=== PATIENT | male | born 1935 | race Caucasian/White ===

== ENCOUNTER → 2017-11-17 | Outpatient (CLI) | payer MEDICARE, OTHER ==
[~2017-11-17] MED LIST: ASPI81EC PO; Antivert25 MG PO; CEPH500 PO; CLOT1SO; DONE5 PO; ERGO400 PO; KETOCONAZOLE 2%; Keppra1000 MG PO; LAMO100 PO; LEVSOD200 PO; LEVSOD25 PO; LEVSOD50 PO; LORA.5 PO; LORA1 PO; NAPR500 PO; OXCA150 PO; OXYACE5T PO; PRIM250 PO; QUIN10 PO; ROSU10TA PO; TAMS.4ER PO; TRIA80TC TOP; TRIHYD253A PO; VALA500 PO; Valium5 MG PO; WARF2 PO; ZESTORETIC 20-121 EA; diuretic; prostate med
== END | disposition home or self-care (01) ==
LOC: PLD 13:34 → LAB SHORT 13:34
DX: D22.62 Melanocytic nevi of left upper limb, including shoulder (principal)
CPT/HCPCS: 88305

== ENCOUNTER → 2017-11-30 | Outpatient (CLI) | payer MEDICARE, OTHER | END | disposition home or self-care (01) | LOC: LAB SHORT 14:02 → PLD 14:02 | DX: D22.62 Melanocytic nevi of left upper limb, including shoulder (principal) | CPT/HCPCS: 88305 ==

== ENCOUNTER 2020-01-07 09:54 | Emergency (ER) | payer MEDICARE, OTHER ==
[~2020-01-07] VITALS: Ht 182.9 cm; Wt 90.7 kg
[2020-01-07 10:42] LABS: BASOPHILS ABSOLUTE AUTO 0.05 K/mm3 (0.00-0.23); BASOPHILS PERCENT AUTO 1 % (0-2); EOSINOPHILS ABSOLUTE AUTO 0.17 K/mm3 (0.00-0.68); EOSINOPHILS PERCENT AUTO 2 % (0-6); Hematocrit 53.1 % (37.0-53.0); Hemoglobin 17.5 g/dL (13.5-17.5); IMMATURE GRAN ABSOLUTE AUTO 0.02 K/mm3 (0.00-0.10); IMMATURE GRAN PERCENT AUTO 0 % (0-1); LYMPHOCYTES ABSOLUTE AUTO 2.82 K/mm3 (0.84-5.20); LYMPHOCYTES PERCENT AUTO 30 % (21-46); MONOCYTES ABSOLUTE AUTO 0.71 K/mm3 (0.16-1.47); MONOCYTES PERCENT AUTO 7 % (4-13); Mean Corpuscular HGB 31.9 pg (26.0-34.0); Mean Corpuscular Volume 97 fL (80-100); Mean Platelet Volume 11.4 fL (9.1-12.4); NEUTROPHILS ABSOLUTE AUTO 5.79 K/mm3 (1.96-9.15); NEUTROPHILS PERCENT AUTO 61 % (41-73); Platelet Count 176 K/mm3 (150-400); RDW Coefficient Variation 12.3 % (11.7-14.2); RDW Standard Deviation 44.2 fL (35.1-46.3); Red Blood Cell Count 5.48 M/mm3 (4.30-5.90); White Blood Cell Count 9.56 K/mm3 (4.00-11.30)
[2020-01-07 10:51] LABS: Troponin I 0.024 ng/mL (0.000-0.040)
[2020-01-07 10:53] LABS: Alanine Aminotransfer (ALT/SGP 24 U/L (12-78); Albumin, Blood 3.4 g/dL (3.4-5.0); Albumin/Globulin Ratio 0.8 (0.8-1.8); Alk Phos 85 U/L (50-136); Anion Gap 8 mmol/L (6-16); Aspartate Aminotrans (AST/SGOT 37 U/L (12-37); Bilirubin, Total 1.2 mg/dL (0.1-1.0); Blood Urea Nitrogen 22 mg/dL (8-24); Bun/Creatinine Ratio 25.4 (12.0-20.0); CO2, Blood 23 mmol/L (21-32); Calcium, Blood 8.2 mg/dL (8.5-10.1); Chloride, Blood 110 mmol/L (98-108); Creatinine, Blood 0.87 mg/dL (0.60-1.20); Globulin, Blood 4.1 g/dL (2.2-4.0); Glomerular Filtration Rate >60 (60-); Glucose, Blood 146 mg/dL (70-99); Potassium, Blood 4.5 mmol/L (3.5-5.5); Sodium, Blood 141 mmol/L (136-145); Total Protein, Blood 7.5 g/dL (6.4-8.2)
[2020-01-07 10:57] LABS: International Normalized Ratio 1.05; Prothrombin Time Results 11.2 Sec (9.7-11.5)
[2020-01-07] MEDS ORDERED: ATOR20 PO (12:49)
[2020-01-07] MEDS ORDERED: METO25ER PO (12:54)
== END 2020-01-07 13:07 | disposition home or self-care (01) ==
LOC: ER 09:54
PROVIDERS: Emergency Medicine
DX: R53.1 Weakness (principal); R61 Generalized hyperhidrosis; F03.90 Unspecified dementia, unspecified severity, without behavioral disturbance, psychotic disturbance, mood disturbance, and anxiety; Z79.01 Long term (current) use of anticoagulants; Z79.899 Other long term (current) drug therapy; G40.909 Epilepsy, unspecified, not intractable, without status epilepticus; E03.9 Hypothyroidism, unspecified; I10 Essential (primary) hypertension; Z86.711 Personal history of pulmonary embolism
CPT/HCPCS: 36415; 71045; 80053; 83690; 83880; 84484; 85025; 85610; 93005; 93010; J2405

== ENCOUNTER 2020-02-07 01:09 | Emergency (ER) | payer MEDICARE, OTHER ==
[~2020-02-07] VITALS: Ht 195.6 cm; Wt 99.8 kg
[~2020-02-07 01:09] MED LIST changes: +ATOR20 PO; -Keppra1000 MG PO; +METO25ER PO
[2020-02-07 01:47] LABS: BASOPHILS ABSOLUTE AUTO 0.05 K/mm3 (0.00-0.23); BASOPHILS PERCENT AUTO 1 % (0-2); EOSINOPHILS ABSOLUTE AUTO 0.19 K/mm3 (0.00-0.68); EOSINOPHILS PERCENT AUTO 2 % (0-6); Hematocrit 48.9 % (37.0-53.0); IMMATURE GRAN ABSOLUTE AUTO 0.02 K/mm3 (0.00-0.10); IMMATURE GRAN PERCENT AUTO 0 % (0-1); LYMPHOCYTES ABSOLUTE AUTO 2.16 K/mm3 (0.84-5.20); LYMPHOCYTES PERCENT AUTO 26 % (21-46); MONOCYTES PERCENT AUTO 8 % (4-13); Mean Corpuscular HGB 31.9 pg (26.0-34.0); Mean Corpuscular HGB Conc 32.7 g/dL (31.5-36.5); Mean Corpuscular Volume 98 fL (80-100); Mean Platelet Volume 11.4 fL (9.1-12.4); NEUTROPHILS ABSOLUTE AUTO 5.23 K/mm3 (1.96-9.15); NEUTROPHILS PERCENT AUTO 63 % (41-73); Platelet Count 203 K/mm3 (150-400); RDW Coefficient Variation 12.7 % (11.7-14.2); RDW Standard Deviation 45.6 fL (35.1-46.3); Red Blood Cell Count 5.01 M/mm3 (4.30-5.90); White Blood Cell Count 8.35 K/mm3 (4.00-11.30)
[2020-02-07 02:05] LABS: Albumin/Globulin Ratio 0.8 (0.8-1.8); Bilirubin, Total 0.7 mg/dL (0.1-1.0); Bun/Creatinine Ratio 18.4 (12.0-20.0); Calcium, Blood 8.7 mg/dL (8.5-10.1); Creatinine, Blood 1.79 mg/dL (0.60-1.20); Globulin, Blood 3.8 g/dL (2.2-4.0); Total Protein, Blood 6.8 g/dL (6.4-8.2); Troponin I 0.016 ng/mL (0.000-0.040)
== END 2020-02-07 05:51 | disposition home or self-care (01) ==
LOC: ER 01:09
PROVIDERS: Emergency Medicine
DX: S09.90XA Unspecified injury of head, initial encounter (principal); Z79.82 Long term (current) use of aspirin; Z79.899 Other long term (current) drug therapy; I10 Essential (primary) hypertension; E03.9 Hypothyroidism, unspecified
CPT/HCPCS: 70450; 71046; 72125; 80053; 84484; 85025; 93005; 93010; 99284-25

== ENCOUNTER 2020-03-04 15:08 | Observation (INO) | payer MEDICARE, OTHER ==
[~2020-03-04] VITALS: Ht 190.5 cm; Wt 90.5 kg
[2020-03-04 15:58] LABS: BASOPHILS ABSOLUTE AUTO 0.06 K/mm3 (0.00-0.23); BASOPHILS PERCENT AUTO 1 % (0-2); EOSINOPHILS PERCENT AUTO 1 % (0-6); Hematocrit 52.8 % (37.0-53.0); Hemoglobin 17.1 g/dL (13.5-17.5); IMMATURE GRAN ABSOLUTE AUTO 0.01 K/mm3 (0.00-0.10); IMMATURE GRAN PERCENT AUTO 0 % (0-1); LYMPHOCYTES ABSOLUTE AUTO 1.93 K/mm3 (0.84-5.20); LYMPHOCYTES PERCENT AUTO 21 % (21-46); MONOCYTES PERCENT AUTO 8 % (4-13); Mean Corpuscular HGB 31.7 pg (26.0-34.0); Mean Corpuscular HGB Conc 32.4 g/dL (31.5-36.5); Mean Corpuscular Volume 98 fL (80-100); NEUTROPHILS ABSOLUTE AUTO 6.25 K/mm3 (1.96-9.15); NEUTROPHILS PERCENT AUTO 69 % (41-73); Platelet Count 156 K/mm3 (150-400); RDW Coefficient Variation 12.7 % (11.7-14.2); RDW Standard Deviation 46.3 fL (35.1-46.3); Red Blood Cell Count 5.39 M/mm3 (4.30-5.90); White Blood Cell Count 9.05 K/mm3 (4.00-11.30)
[2020-03-04 16:20] LABS: Alanine Aminotransfer (ALT/SGP 20 U/L (12-78); Albumin, Blood 3.4 g/dL (3.4-5.0); Albumin/Globulin Ratio 0.9 (0.8-1.8); Alk Phos 78 U/L (50-136); Anion Gap 6 mmol/L (6-16); Aspartate Aminotrans (AST/SGOT 24 U/L (12-37); Bilirubin, Total 1.4 mg/dL (0.1-1.0); Blood Urea Nitrogen 27 mg/dL (8-24); Bun/Creatinine Ratio 33.6 (12.0-20.0); CO2, Blood 25 mmol/L (21-32); Calcium, Blood 8.6 mg/dL (8.5-10.1); Chloride, Blood 109 mmol/L (98-108); Globulin, Blood 3.8 g/dL (2.2-4.0); Glomerular Filtration Rate >60 (60-); Glucose, Blood 110 mg/dL (70-99); Potassium, Blood 4.8 mmol/L (3.5-5.5); Sodium, Blood 140 mmol/L (136-145); Total Protein, Blood 7.2 g/dL (6.4-8.2)
[2020-03-04] MEDS ORDERED: ATOR40TA PO (16:55)
[2020-03-04] MEDS ORDERED: SYNTHROID125 MC1 PO (16:55)
[2020-03-04] MEDS ORDERED: METOPROLOL TART25 MG PO (16:55)
[2020-03-04] MEDS ORDERED: DONEPEZIL HCL10 M1 PO (16:56)
[2020-03-04] MEDS ORDERED: KEPPRA1000 MG PO (16:57)
[2020-03-04] MEDS ORDERED: ASPI325EC PO (16:58)
[2020-03-04] MEDS ORDERED: CLOP75 PO (16:58)
[2020-03-04] MEDS ORDERED: Prinivil10 MG PO (16:59)
[2020-03-04 17:27] LABS: Source, Urine Clean Catch
[2020-03-04 17:31] LABS: Blood, Urine 3+ (Neg); Glucose Qualitative, Urine Neg (Neg); Ketones, Urine 4+ (Neg); Leukocyte Esterase, Urine 1+ (Neg); Nitrite, Urine Neg (Neg); Protein, Urine 2+ (Neg); Specific Gravity, Urine 1.025 (1.003-1.022); Urobilinogen, Urine 2+ (Normal)
[2020-03-04 17:34] LABS: Appearance, Urine Clear (Clear); Bilirubin, Urine 1+ (Neg); Color, Urine Amber (P-Yellow)
[2020-03-04 17:36] LABS: Bacteria Many /hpf; Mucus Mod (0-Heavy); Squamous Epithelial Cells Mod /hpf (Few)
--- NOTE | 2020-03-05 05:52 | NUR ---
SHIFT SUMMARY PT NEW ED ADMIT THIS EVENING. VERY CONFUSED. ALERT TO SELF ONLY THIS EVENING. DOES NOT ANSWER QUESTIONS APPROPRIATELY. JUST MUMBLES SOMETHING OFF TOPIC WHEN ATTEMPTING TO ASK QUESTIONS. PT PROVIDED WITH PUDDING AND SANDWICH AND PT ONLY SAT THERE SPREADING THE PUDDING ON THE TOP OF THE SANDWICH. INITIALLY PT DID NOT WANT TO SIT IN BED BUT HAS DONE WELL SINCE ADMISSION. ATIVAN GIVEN IN ED AND PT HAS BEEN SLEEPING MOST OF THE NIGHT SINCE. PREPARED NANCY VEST BUT DID NOT END UP HAVING TO PLACE IT ON PATIENT. PT HAS NOT SET OFF BED ALARM BUT WAS IMPULSIVE AND UNCOOPERATIVE AT TIMES IN ED PER REPORT. BED ALARM ON FOR SAFETY. PT HAS NOT VOIDED THIS SHIFT. OFFERED MULTIPLE TIMES AND PT DENIED THE NEED. PT HAS NOT BEEN INCONTINENT OF URINE EITHER. PT WAS STRAIGHT CATH'D IN ED BEFORE ADMISSION. BLADDER SCAN DONE THIS AM READING 235 MLS. NEW 22 G PLACED TO LFA. PT TOLERATED WELL. HAS NOT ATTEMPTED TO REMOVE. PT WILL REQUIRE PLACEMENT UPON DISCHARGE. VITAL SIGNS STABLE. WILL CONTINUE TO MONITOR.
--- NOTE | 2020-03-05 07:25 | NUR ---
ASSUMED CARE OF PT- BEDSIDE REPORT COMPLETED WITH NIGHT RN ANNABEL. PER REPORT PT WAS RECENTLY ADMITTED. SNF WAS RECOMENDED ON DISCHARGE HOWEVER FAMILY WANTED TO TAKE THE PT HOME. ONCE HOME (PER REPORT) PT WAS NOT WHAT THE FAMILY WAS EXPECTING AND HE HAD ADDITIONAL FALLS. PT ADMITTED R/T THE FALLS AND NEEDS PLACEMENT. PLACING A SS CONSULT AT THIS TIME PER PROTOCOL FOR DISCHARGE PLANNING.
--- NOTE | 2020-03-05 08:00 | NUR ---
DR KINSEY AT THE BEDSIDE PT NOT ROUSING TO VOICES, OR PHYSICAL STIMULI. PT APPEARS TO BE SLEEPING SOUNDLY. PULSE OX PLACED TO CHECK SATS PT WAS SLEEPING SO SOUND AND PT HR WAS LOW [address] WAS PRESENT. RECIEVED VERBAL ORDER FOR STAT EKG, PT HAS +2 PITTING EDEMA IN BLE. AWARE AND REQUESTED RN CALL WITH THE RESULT OF THE EKG ONCE COMPLETED.
--- NOTE | 2020-03-05 08:30 | NUR ---
CALLED DR KINSEY WITH THE RESULT OF THE EKG. NO NEW ORDERS AT THIS TIME. PT STABLE NO S&S OF DISTRESS, RESP E & U. WILL REVIEW EKG.
--- NOTE | 2020-03-05 09:00 | NUR ---
DR SANCHEZ ROUNDED ON THE PT, SPOKE TO HIM ABOUT THE MORNINGS EVENTS. NEW ORDER RECIEVED TO PLACE THE PT ON TELE. PT RUNNING SINUS PARTH AT 46 WHEN TELE WAS PLACED.
--- NOTE | 2020-03-05 13:53 | NUR ---
PT FULLY AWAKE AND CONFUSED, CLIMBING OUT OF BED, SPEAKING IN WORD SALAD, NOT REDIRECTABLE. PT APPEARS TO BE PLEASENTLY CONFUSED AT THIS TIME BUT SEEMS TO BE ESCALATING WILL CALL FOR NANCY DIGGS ORDER STAFF ARE NOW 1:1 TO PREVENT PT FALLS, IF THE STAFF LEAVE THE ROOM THE PT WILL IMMEDIATELY CLIMB OVER THE RAILING, HE DOES NOT KNOW WHERE HE IS GOING (PER PT) PT DENIES THE NEED FOR BATHROOM. NANCY DIGGS WILL KEEP THE PT SAFE.
--- NOTE | 2020-03-05 14:00 | NUR ---
TRANSFER NOTE- PT TRANSFERED TO BACK THIELLS FOR SAFETY AND FALL RISK. PT PLACED IN NANCY VEST (SEE PREVIOUS NOTES FOR DETAILS) SOON THE VEST WAS PLACED THE PT LAID BACK IN THE BED AND LAY QUIETLY UNTIL THE TRANSFER. TELE NOTIFIED OF THE TRANSFER TO ROOM 350
--- NOTE | 2020-03-05 15:37 | NUR ---
SHIFT SUMMARY PT WAS TRANSFERRED FROM THE COATS AND WAS ASSISTED TO HIS NEW BED. HE IS AWAKE AND SMILES BUT IS NOT ORIENTED AND SPEAKS IN WORD SALAD. PER REPORT HE HAS BEEN TRYING TO CLIMB OUT OF BED AND HAS A NANCY ON FOR HIS SAFETY. DR KINSEY HAS SEEN HIM AT THE BEDSIDE SINCE HIS TRANSFER. HE HAS HIS CALL LIGHT IN REACH AND THE BED IS IN THE LOW POSITION WITH THE ALARM ON FOR PT SAFETY.
--- NOTE | 2020-03-06 04:30 | NUR ---
SUMMARY: PT A/O TO SELF ONLY. HE'S PLEASANT W/ATTEMPTS TO BE COOPERATIVE W/CARE BUT HE IS VERY CONFUSED AND HAS DIFFICULTY FOLLING INSTRUCTION. HE'S FORGETFULL, IMPULSIVE, A HIGH FALL RISK AND DOESN'T CALL FOR ASSIST SO NANCY VEST REMAINS IN PLACE W/BED ALARM ON. TURN SCHEDULE MAINTAINED, CAMERA MONITORING IN PLACE AND FREQ ROUNDING ATTENDED TO. HE CAN ANSWER SOME Q'S APPROPRIATELY TO SPECIFY NEEDS BUT AT OTHER TIMES HAS WORD SALAD. SNACKS PROVIDED AND ATTENDS CHANGED PRN FOR INCONTINENCE. HE REMAINS NSR ON TELEMETRY W/IV SL. MEDS RECIEVED CRUSHED IN PUDDING AND PT DENIED PAIN/ALL OTHER COMPLAINTS. NO ACUTE CHANGES, VSS/AFEBRILE. HE'LL LIKELY NEED SNF UPON D/C. WCTM AND REPORT TO DAY RN.
--- NOTE | 2020-03-06 06:10 | NUR ---
PT HAS BEEN NSR W/OCCASIONAL S.PARTH AT 52-60'S BPM SINCE ADMIT W/O ANY ECTOPIES. ALL OTHER VSS AND NO S/S CARDIAC DISTRESS. HE'S REMOVED PATCHES MULTIPLE TIMES T/O NOCTE AND TELEMETRY OFTEN READS ARTIFACT D/T FIGITING AND RESLTESSNESS. TELEMETRY DC'D BY AT THIS TIME.
--- NOTE | 2020-03-06 06:48 | NUR ---
AFTER FURTHER RESEARCH AND EVALUATION OF BRADYCARDIA DOWN TO 40'S RECENT 03/05/20, DISCUSSION WAS HAD W/RADAR SIGNAL PROCESSING ENGINEER (AMBER BRUCE) RE:POSSIBLE CONT'D NEED OF TELEMETRY. FACILITY SERVICE ASSOCIATE INFORMED STAFF THAT RHYTHM WAS COMING IN [place] AGAIN AND HE IS CURRENTLY NSR AT 60'S BPM. UPDATED AND REORDERED TELEMETRY MONITORING. DAY STAFF AWARE AND SAME TELEMETRY BOX REMAINS IN PLACE. DC TELE ORDER IS NOW CANCELLED.
--- NOTE | 2020-03-06 11:26 | NUR ---
Pt. is din bed resting offered prayers and gave encouragement.
--- NOTE | 2020-03-06 19:17 | NUR ---
SHIFT SUMMARY: HYPOTENSIVE TO 97/61 THIS MORNING, BETA JEFF HELD. ALERT TO SELF ONLY, DIFFICULT TO REDIRECT, FLAT AFFECT. SINUS RHYTHM WITH PAC'S ON TELEMETRY. NANCY VEST REMOVED AT 1249 PT WAS QUIET AND COOPERATIVE. AT ~1830, PATIENT GETTING OOB WITHOUT ASSISTANCE (IS MONITORED ON CAMERA) AND TRYING TO WALK WITHOUT FWW, DOES NOT FOLLOW DIRECTIONS WELL. DENIES PAIN. WILL NOT EAT IF LEFT ALONE, NEEDS FEEDING ASSISTANCE. INCONTINENT OF B&B, WEARING ATTENDS. PLAN IS FOR [facility]ACEMENT [facility] WHEN BED AVAILABLE.
--- NOTE | 2020-03-07 01:11 | NUR ---
03/06/201999 Pt is up in chair, he continues to try and get up, freq falls in the past. [place] restraint reordered and applied for safety. Pt is cooperative with angela. Remains up in chair with TV on for distraction. Pt is very confused and has difficulty following directions.
--- NOTE | 2020-03-07 05:00 | NUR ---
Rn summary: Patient has been resting quietly this shift since he was helped to bed. [place] removed at 0400 due to his staying in bed and sleeping. Tele shows ST rate 102. Heart rate at 0400 was 86. No changes during the shift. Bed alarm on, call light near.
--- NOTE | 2020-03-07 13:35 | NUR ---
Met. pt. in bed resting , he looks much better today encouraged pt and offered prayers.
--- NOTE | 2020-03-07 20:27 | NUR ---
SHIFT SUMMARY: A&O TO SELF ONLY, RESPONDS TO QUESTIONS AT TIMES. CAN BE IMPULSIVE AND HAS DIFFICULTY FOLLOWING DIRECTIONS. NO RESTRAINTS REQUIRED THIS SHIFT. WAS UP IN CHAIR FOR MEALS, USED FWW X 3 TO USE BR. NAPPED INTERMITTENTLY. NO SUNDOWNING BEHAVIOR TONIGHT. GAIT IS WEAK AND UNSTEADY. NEEDS TO BE FED AND PROMPTED TO DRINK FLUIDS, INTAKE IS POOR. NO BM X 2 DAYS, MOM GIVEN WITHOUT RESULT, HAS ACTIVE BS.
--- NOTE | 2020-03-08 06:00 | NUR ---
SHIFT SUMMARY: VSS. AFEB. AAO TO SELF. PLEASANTLY CONFUSED. JOVIAL. NO ATTEMPTS TO SELF T/F OUT OF BED. CONT OF URINE X 1 TONIGHT. NO VOID THIS AM, BLADDER SCAN SHOWS 299CC'S. FLUIDS AT BEDSIDE AND ENCOURAGED. BED ALARM ON, BED LOW, FREQUENT CHECKS. NO ACUTE CHANGES. WILL CONT TO MONITOR.
--- NOTE | 2020-03-08 18:10 | NUR ---
SHIFT SUMMARY- PT IS ALERT AND PLESANT, HE IS CONFUSED AND HAS A DIFFICULT TIME FOLLOWING DIRECTIONS. HE SLEPT FOR SEVERAL HOURS AT THE BEGINNING OF THIS SHIFT BUT BECAME MORE RESTLESS DURING THE EVENING. HIS CAME TO VISIT TWICE DURING THIS SHIFT. HE IS EATING AND DRINKING WELL. HE IS INCONTINENT. HE DID NOT HAVE A BM THIS SHIFT.
--- NOTE | 2020-03-09 04:51 | NUR ---
SHIFT SUMMARY: VSS. AFEB. AAO TO SELF. ATTEMPTS TO SELF T/F ONLY WHEN ATTEMPTING TO ACCESS THE BATHROOM TONIGHT. VERY DIFFICULT TO DIRECT WHEN UP AMB W/ STAFF ASSIST. QUIETER TONIGHT, LESS TALKING. STILL SMILES AND JOKES W/STAFF AT TIMES. CONT TO SPEAK WITH A WORD SALAD AT BASELINE. BED LOW, ALARM ON, CAMERA MONITOR IN PLACE, WILL CONT TO MONITOR.
--- NOTE | 2020-03-09 05:16 | NUR ---
PT HAD ONE VERY SMALL INCONTINENT VOID TONIGHT. BLADDER SCAN SHOWED 247CC. INTAKE REMAINS VERY LOW.
--- NOTE | 2020-03-09 17:50 | NUR ---
SHIFT SUMMARY- PT IS ALERT PLESANT AND COOPERATIVE. HE SLEPT FOR MUCH OF THIS SHIFT. HE WAS GIVEN PRN BOWEL CARE, WITH NO RESULTS OF YET. HE IS EATING AND DRINKING WELL. HE GOT UP A FEW TIMES AND AMBULATED IN THE ROOM. HE STATED THAT HE NEEDED TO HAVE A BM AND WAS TAKEN TO THE RESTROOM, ONCE HE WAS THERE HE COULD NOT REMEMBER WHY HE WAS IN THERE. HE URINATED IN THE TOILET BUT DID NOT HAVE A BM. HE IS CONFUSED AND IT IS DIFFICULT TO FOR HIM TO FOLLOW DIRECTIONS.
--- NOTE | 2020-03-10 00:32 | NUR ---
HOSPITALIST ISRAEL MCCLENDON DC'D TELEMETRY. NO IV ACCESS. FUEL STORAGE TECHNICIAN NOTIFIED.
--- NOTE | 2020-03-10 04:09 | NUR ---
SHIFT SUMMARY PATIENT HAD NO ACUTE CHANGES OBSERVED. AXO TO SELF. WORD SALAD BASELINE. ONE ASSIST TO BATHROOM, IMPULSIVE. NOT ABLE TO DIRECT AT TIMES. BED ALARM ACTIVATED. TAKES MEDICATION A FEW AT A TIME. NO IV ACCESS. TELEMETRY DC'D. VSS/AFEBRILE. DENIES PAIN, SOB, AND N/V. ON CAMERA. CALL LIGHT IN REACH. BED IN LOWEST POSITION. WILL CONTINUE TO MONITOR UNTIL DAY SHIFT NURSE ASSUMES CARE.
--- NOTE | 2020-03-10 18:15 | NUR ---
SHIFT SUMMARY PT SLEEPING, RESTING QUIETLY AT START OF SHIFT. PT SLEEPING WELL THRU BREAKFAST, EATING LATE. ADMITTED FOR ALZ DEMENTIA. PT WOKE AND ASSISTED UP TO CHAIR FOR MEALS. COMPLETELY UNDIRECTABLE. DOES NOT FOLLOW COMMANDS OR ASSISTED DIRECTIONS AT ALL. HX FALLS AT HOME. PT OUT OF CHAIR, SETTING OFF ALARM TO GO TO BTHRM; UNMEASURED VOID AND EXTRA LRG BM. PT HAS BEEN CONTINENT OF BOWEL AND BLADDER. NO C/O PAIN. DENIES NEEDS. PT WAITING FOR PLACEMENT IN [facility]. CALL LT IN REACH. BED ALARM ON FOR SAFETY.
--- NOTE | 2020-03-10 20:46 | NUR ---
HOSPITALIST DR ZEPEDA ORDERED NANCY DIGGS FOR PATIENT. NOT REDIRECTABLE AT THIS TIME. FALL RISK. ALERT TO SELF. CALL LIGHT IN REACH.
--- NOTE | 2020-03-11 04:56 | NUR ---
SHIFT SUMMARY PATIENT HAD INCREASED CONFUSION WITH MULTIPLE BED EXITS AND NOT ABLE TO FOLLOW DIRECTIONS. HOSPITALIST DR ZEPEDA ORDERED NANCY VEST FOR PATIENT SAFETY AND FALL RISK. PATIENT TRIED TO TAKE VEST OFF T/O THE SHIFT AND SWINGS LEGS OVER BED RAILS PER CAMERA TECH. VSS/AFEBRILE. DENIES PAIN, SOB, AND N/V. NO IV ACCESS. CALL LIGHT IN REACH. BED IN LOWEST POSITION AND ALARM ACTIVATED. WILL CONTINUE TO MONITOR UNTIL DAY SHIFT NURSE ASSUMES CARE.
--- NOTE | 2020-03-11 18:32 | NUR ---
SHIFT SUMMARY NO ACUTE CHANGES TO PRESENT THIS SHIFT. PT A LITTLE AGITATED THIS AM WITH OTHER PT'S YELLING ACROSS THE COATS; FREQUENTLY ATTEMPTING TO GET OOB. SETTING OFF BED ALARM. PT ASSISTED UP TO CHAIR FOR BREAKFAST. DOES NOT CO-OP OR FOLLOW INSTRUCTIONS AT ALL. PT IS ALERT AND ORIENTED TO SELF ONLY. DOES NOT ACKNOWLEDGE ANY COMMANDS OR QUESTIONS WHEN ASKED. PT ASSISTED OUT TO COATS AFTER BREAKFAST, SITTING IN CHAIR BESIDE STAFF THRU OUT THE DAY. PT'S IN TO VISIT FOR A LITTLE WHILE DURING LUNCH AND THEN LEFT. REPORTED SP FAUCILITY TO COME AND MEET PT TOMORROW FOR POSSIBLE INTAKE. HOPING HE WILL BE ACCEPTED, SHE REPORTED THAT IT HAS BEEN DIFFICULT TO FIND AVAILABLE PLACEMENT FOR HIM. PT DOES NOT APPEAR TO BE IN ANY DISTRESS. SITTING IN CHAIR WITH MAGAZINES AND OBJECTS GIVEN TO DISTRACT HIM AND ENTERTAIN HIM. PT SMILING AND OCCASSIONALLY LAUGHING. WILL REPORT TO ONCOMING RN.
--- NOTE | 2020-03-12 04:13 | NUR ---
SHIFT SUMMARY PATIENT HAD NO ACUTE CHANGES OBSERVED. AXOX TO SELF AND ONE ASSIST TO BATHROOM. NANCY VEST IN PLACE PER ORDERS. IMPULSIVE AND FALL RISK WITH MULTIPLE BED EXIT ATTEMPTS. VSS/AFEBRILE. DENIES PAIN, SOB, AND N/V. NO IV ACCESS. TAKES MEDICATION WHOLE, A FEW AT A TIME. PATIENT OUT IN COATS DURING SHIFT CHANGE AND LATER BACK IN BED. PATIENT NOT REDIRECTABLE AT THIS TIME AND NOT FOLLOWING COMMAND. LESS AGITATION NOTED THIS SHIFT. CALL LIGHT IN REACH. BED IN LOWEST POSITION AND ALARM ACTIVATED. WILL CONTINUE TO MONITOR UNTIL DAY SHIFT NURSE ASSUMES CARE.
--- NOTE | 2020-03-12 15:01 | NUR ---
Met pt in a chair resting, pt.is weak encouraged pt offered prayers and spiritual support.
--- NOTE | 2020-03-12 17:46 | NUR ---
SHIFT SUMMARY PATIENT ALERT TO SELF THIS SHIFT. PATIENT CALM AND COOPERATIVE WITH CARE. PATIENT SITTING UP IN THE CHAIR THIS SHIFT. PATIENT PLEASANTLY CONFUSED AND OFTEN DOESN'T UNDERSTAND QUESTIONS. PATIENT SITTING UP IN THE CHAIR EATING DINNER.
--- NOTE | 2020-03-13 04:17 | NUR ---
SHIFT SUMMARY PT HAS HAD NO ACUTE CHANGES THIS SHIFT, NO C/O ANY KIND, A&O TO SELF ONLY, PLEASANT & COOPERATIVE W/CARE, SLEPT T/O THE NIGHT & AT THIS TIME, CALL LIGHT IN REACH, WILL CONT TO MONITOR UNTIL REPORT GIVEN TO DAY RN.
--- NOTE | 2020-03-13 11:10 | NUR ---
Pt. is sitting in a chair ans is doing much better prayed for him.
--- NOTE | 2020-03-13 17:27 | NUR ---
SHIFT SUMMARY PATIENT PLEASANTLY CONFUSED THIS SHIFT. PATIENT MORE WITHDRAWN THIS SHIFT THAN PREVIOUS SHIFT. PATIENT UP IN CHAIR FOR BREAKFAST THEN BACK IN BED AND TOOK A NAP THIS AFTERNOON. VISITORS IN FROM A FACILITY THIS SHIFT ASSESSING THE PATIENT FOR POTENTIAL PLACEMENT. PATIENT OFTEN ONLY REDIRECTABLE AFTER MULTIPLE ATTEMPTS. PATIENT CURRENTLY SITTING UP IN BED WATCHING TELEVISION.
--- NOTE | 2020-03-14 05:07 | NUR ---
SHIFT SUMMARY PT HAS HAD NO ACUTE CHANGES THIS SHIFT, WALKED W/PLASTICS DESIGN ENGINEER W/FWW 75 FT IN HALLWAY BEFORE BED, SLEPT PERIODICALLY T/O THE NIGHT, SLEEPING AT THIS TIME, BED ALARM ACTIVE, WILL CONT TO MONITOR UNTIL REPORT GIVEN TO DAY RN.
--- NOTE | 2020-03-14 13:52 | NUR ---
Pt. is sitting in a chair resting seems to be confused offered prayers and spiritual support.
--- NOTE | 2020-03-14 17:29 | NUR ---
SHIFT SUMMARY PATIENT REMAINS DISORIENTED THROUGHOUT THIS SHIFT. PATIENT FOLLOWS DIRECTIONS ONLY AFTER REPEATED COACHING. PATIENT APPEARS TO NOT HEAR MANY DIRECTIONS UNTIL THEY ARE REPEATED SEVERAL TIMES, YET DOES NOT APPEAR HUGHES DUE TO ANSWERING SOME QUESTIONS AT A SPEAKING VOICE. PATIENT UP IN THE BEDSIDE CHAIR THIS AM. PATIENT 1 PERSON ASSIST TO THE BATHROOM, YET COACHING TO REACH THE BATHROOM OFTEN TAKES SOME TIME. PATIENT CURRENTLY SITTING UP IN BED WATCHING TELEVISION.
--- NOTE | 2020-03-15 01:33 | NUR ---
PT HAS GOTTEN UP MULTIPLE TIMES. HE IS VERY CONFUSED AND HARD TO RE-DIRECT. PT ALSO HAS UNSTEADY GAIT. NANCY VEST AND WRIST RESTRAINTS APPLIED AT 2150. PT HAS TRIED TO UNTIE HIS VEST. 0135 CURRENTLY ASLEEP.
--- NOTE | 2020-03-15 06:41 | NUR ---
MEDICAL EXAMINER SUMMARY PT A/O X1. PT HAS TRIED TO GET MULTIPLE TIMES AT BEGINNING OF SHIFT. HE WAS SUCCESSFUL AT UNTIEING HIS NANCY, THEREFORE SOFT BILATERAL WRIST RESTRAINTS WERE APPLIED. WHEN HE DOES GET UP, HE IS DIFFICULT TO RE-DIRECT AND HAS UNSTEADY GAIT. NANCY AND WRIST RESTRAINTS WERE DC'D AT 0635 THIS MORNING. PT CURRENTLY ASLEEP NOW. DENIES PAIN, NAUSEA AND DISCOMFORT. HTN THIS MORNING. HOSPIALIST DR. SERNA NOTIFIED AND RE-STARTED ON METOPROLOL PO. PT DOES HAVE HX OF HTN. BED ALARM ON. ON CAMERA MONITOR. CALL LIGHT WITHIN REACH.
--- NOTE | 2020-03-15 17:42 | NUR ---
SHIFT SUMMARY PATIENT REMAINS PLEASANTLY CONFUSED THIS SHIFT. PATIENT MORE ACTIVE THIS SHIFT AND HAS ATTEMPTED TO AMBULATE MULTIPLE TIMES. WHEN ATTEMPTING TO AMBULATE WITH PATIENT FOR SAFETY PATIENT IS UNABLE TO FOLLOW INSTRUCTIONS. PATIENT ABLE TO AMBULATE TO THE BATHROOM WITH MULTIPLE REPEATED INSTRUCTIONS. PATIENT SITTING UP IN THE CHAIR WATCHING TELEVISION.
--- NOTE | 2020-03-15 20:43 | NUR ---
BILATERAL SOFT WRIST RESTRAINT AND NANCY HAS BEEN APPLIED AT THIS TIME. PT HAS TRIED TO GET OUT OF BED MULTIPLE TIMES. HE IS VERY HARD TO REDIRECT. HE IS A FALL RISK WELL. A/O TO SELF. HE DENIES PAIN. I OFFERED PT URINAL AND HE DID NOT VOID. BED IN LOWEST POSITION. LOW LIGHT IN PLACE. WILL CONTINUE TO MONITOR.
--- NOTE | 2020-03-16 06:13 | NUR ---
MOLD FILLER SUMMARY PT A/O X1 TO SELF. CURRENTLY IN NANCY VEST AND BILATERAL WRIST RESTRAINTS DUE TO IMPULSIVENESS, FALL RISK AND NOT FOLLOWING DIRECTIONS EVEN WITH 2 STAFF MEMBERS TRYING TO RE-DIRECT PT BACK TO BED. HE IS CURRENTLY TALKING TO SELF IN HIS ROOM. TUGS AT RESTRAINTS AT TIMES. PT EDUCATED TO NOT TUG AT RESTRAINTS FOR HIS SAFETY. VSS. BED ALARM IN PLACE, BED IN LOWEST POSITION, CALL LIGHT IN PLACE. NO COMPLAINTS OF PAIN OR NAUSEA.
--- NOTE | 2020-03-16 11:27 | NUR ---
SPOKE WITH DR. SANCHEZ ABOUT THE PATIENT NOT PEEING. ALTHOUGH IT READ >448. DR. SANCHEZ SAID TO GO AHEAD AND RECHECK IN FOUR HOURS. IF HIS BLADDER HAS OVER 600 THEN WE CAN STRAIGHT CATH THE PATIENT.
--- NOTE | 2020-03-16 17:51 | NUR ---
SHIFT SUMMARY NO ACUTE CONCERNS AT THIS TIME. PATIENT HAS BEEN LETHARGIC. HE DENIES ANY CONCNERNS AT THIS TIME.
--- NOTE | 2020-03-17 05:32 | NUR ---
SHIFT SUMMARY PT IS AN 84 Y/O MALE, ADMITTED FOR ALZHEIMER'S & DEMENTIA. PT IS A&O X 0, VERY DIFFICULT TO REDIRECT, AND DOES NOT LISTEN TO INSTRUCTIONS. HE IS ON BEDREST, INCONTINENT. PT DENIED ANY COMPLAINTS OF PAIN, NAUSEA OR SOB. PT SLEPT WELL. VITAL SIGNS STABLE. NO ACUTE CHANGES IN PT CONDITION NOTED DURING THE NIGHT. WILL CONTINUE TO MONITOR AND TREAT PER EMAR UNTIL HAND OFF TO DAY SHIFT RN.
--- NOTE | 2020-03-17 18:52 | NUR ---
SHIFT SUMMARY PATIENT IS DISROBING IN HIS ROOM, HE STATES THAT HE NORMALLY SLEEPS IN THE NUDE AND REFUSES THE IDEA OF HAVING SOMEONE TAKE CARE OF HIM. I DID NOTE THAT HE HAS A BRUISE ON HIS ABDOMEN UNDER THE STRAP. HE DENIES THAT IT IS FROM HIS SHIRT. HE IS TRYING TO PULL HIS NANCY OFF CONSTANTLY. WE HAVE CHANGED SIZES OF NANCY VEST, THE BRUISE LOOKS NO WORSE TODAY THAN YESTERDAY.
--- NOTE | 2020-03-17 19:14 | NUR ---
chaeck on pt a few times today resting comfortbly.
--- NOTE | 2020-03-18 06:45 | NUR ---
SHIFT SUMMARY PT IS AN 84 Y/O MALE, ADMITTED FOR DEMENTIA AND ALZHEIMERS. HE IS A&O X SELF ONLY, UNABLE TO BE REDIRECTED OR REORIENTED. PT BEGAN THE SHIFT IN A NANCY VEST, AND SOFT WRIST AND ANKLE RESTRAINTS WERE ADDED WHEN PT WAS ABLE TO PULL HIMSELF OUT OF HIS NANCY, AND THEN WAS THROWING HIS LEGS AND HIPS OFF OF THE BED. PT IS ALSO CONTINUALLY PULLING OFF HIS CLOTHING, ATTENDS, AND ANY BLANKETS OR PILLOWS AROUND THEM. NO COMPLAINTS OF PAIN, NAUSEA OR SOB. VITAL SIGNS STABLE. PT ONLY SLEPT FOR SHORT PERIODS OF TIME DURING THE NIGHT. NO OTHER ACUTE CHANGES IN PT CONDITION NOTED. WILL CONTINUE TO MONITOR AND TREAT PER EMAR UNTIL HAND OFF TO DAY SHIFT RN.
--- NOTE | 2020-03-18 11:26 | NUR ---
PATIENT IS CURRENTLY TALKING TO AN EMPTY ROOM. HE IS IN ANKLE RESTRAINTS, AND A NANCY. HE IS HAVING A FULL CONVERSATION WITH THE WALL AND THE EMPTY ROOM. DENIES ANY CONCERNS WHEN I WALK IN.
--- NOTE | 2020-03-18 15:48 | NUR ---
SHIFT SUMMARY PATIENT IS PLEASANT, ALERT TO SELT. HE IS STILL IN HIS NANCY AT THIS TIME, HE WAS IN FOUR POINTS WHEN I ARRIVED THIS ORNING. I DO BELIEVE THAT HE SUNDOWNS DURING THE EVENING. DENIES ANY OTHER PROBLEMS AT THIS TIME. PATIENT IS FAIRLY DEMENTED.
--- NOTE | 2020-03-19 05:12 | NUR ---
SUMMARY: PT IS PLEASANTLY CONFUSED AND ALERT TO SELF ONLY. HE OCCASIONALLY SEEMS TO ANSWER SOME Q'S APPROPRIATELY BUT OFTEN RESPONDS NONSENSICALLY. HE REMAINS ON CAMERA W/BED ALARM INTACT AND RESTRAINED FOR IMPULSIVITY AND VERY HIGH FALL RISK. HE SLEPT INTERMITTENTLY AND TENDS TO AWAKE FIGITY, DISROBING AND ATTEMPTING TO REMOVE ATTENDS OR THROW LEGS OVER EOB. HE IS BEING TESTED OUT OF 4 POINT RESTRAINTS AND HAS TOLERATED NANCY VEST ONLY AT THIS TIME. PT TOLERATES PILLS W/APPLESAUCE BUT IS OBSERVED OFTEN CHEWING THEM. HE'S DENIED PAIN AND ALL OTHER COMPLAINTS. PT CONT'S W/POOR UO AND IS KNOWN TO NOT VOID FOR A WHOLE SHIFT. MD'S HAVE BEEN PREVIOUSLY AWARE W/O SIGNIFICANT CONCERN BECAUSE HE IS VOIDING. NO ACUTE CHANGES, VSS/AFEBRILE. WCTM/REPORT TO DAY RN.
--- NOTE | 2020-03-19 06:28 | NUR ---
SPOKE WITH . PT STILL HASN'T VOIDED THIS SHIFT AND DENIES NEED/URGE TO VOID AND DENIES DISCOMFORT. HE IS TYPICALLY INCONTINENT W/ POOR INTAKE AND IS KNOWN TO NOT VOID AT TIMES IN SHIFT. PRN BLADDER SCANS RX'D W/INSTRUCTION TO STRAIGH CATH IF >450.
--- NOTE | 2020-03-19 07:58 | NUR ---
CALLED JAVA LEAD. EDWARDO CERDA PT CONFIRMED SEEN ON CAMERA.
--- NOTE | 2020-03-19 15:15 | NUR ---
RESTRAINTS DC'D TODAY AT 1515 PER NURSING JUDGEMENT. PT SLEEPING MOST OF THE MORNING. MORE AWAKE THIS AFTERNOON. BED BATH GIVEN. TRIAL WITH NO RESTRAINTS IN PROGRESS. PT RESTING COMFORTABLY IN BED WITH CALL LIGHT IN REACH.
--- NOTE | 2020-03-19 18:08 | NUR ---
SHIFT SUMMARY PT ONLY ORIENTED TO SELF TODAY. SLEPT MOST OF DAY. PT WEARING NANCY VEST THIS AM D/T CONFUSION AND FALL RISK. TRIALED DC OF RESTRAINTS THIS AFTERNOON, AND PT DID WELL. COMPLIANT WITH CARE. NO ATTEMPTS TO GET OUT OF BED. SUCCESSFUL STRAIGHT CATH FOR URINE RETENTION >500ML. DRAINED 620CC. NO URINATION POST STRAIGHT CATH. F/U BLADDER SCANNER SHOWS 84ML. PT MORE ALERT THIS AFTERNOON. IN FOR VISIT. PLAN IS FOR DC TOMORROW TO [facility]. DNR AND ID WRISTBAND REAPPLIED. VITALS REVIEWED. PT RESTING COMFORTABLY IN BED AFTER DINNER. CALL LIGHT IN REACH.
--- NOTE | 2020-03-19 20:03 | NUR ---
03/19/201949 Video pvc monitor called that pt trying to get out of bed. P t confused to all but self. Reoriented to surroundings. TV turned on for distraction. PT watching TV. BED ALARM ON.
--- NOTE | 2020-03-19 23:53 | NUR ---
03/19/20 2355 PT HAS BEEN IMPULSIVE AND TRYING TO GET OUT OF BED SEVERAL TIMES/HOUR. RN NOTIFIED MD FOR ORDER FOR RESTRAINTS FOR PT SAFETY. ALSO PT HAS BEEN HANGING LEGS OVER SIDERAILS AND PULLING OFF LINENS. AGITATED AND WAS MEDICATED PER MAR FOR AGITATION.
--- NOTE | 2020-03-20 00:11 | NUR ---
03/20/20 0000 BLADDER SCAN = 192 ML. ABDOMEN SOFT AND PT DENIES NEED TO VOID.
--- NOTE | 2020-03-20 06:31 | NUR ---
03/20/20 0600 PT SLEPT WELL WITH NANCY VEST ON. REPOSITIONED Q 2-3 HOURS. HAS NOT VOIDED THIS SHIFT. BLADDER SCAN DONE AT 0550 WAS 380 ML. ABDOMEN SOFT. PT ONLY TOOK FEW SIPS OF WATER THIS AM. 6 AM MED HELD FOR NOW DUE TO DROWSINESS.
[2020-03-20] MEDS ORDERED: OLAN5 PO (10:49)
[2020-03-20] MEDS ORDERED: MIRALAX17 GM PO (10:52)
--- NOTE | 2020-03-20 10:59 | NUR ---
Met pt in bed and his nurse in the room attending to his needs,pt is doing much better offered prayers nanmelvin spiritual suport.
--- NOTE | 2020-03-20 12:26 | NUR ---
NANCY VEST RESTRAINT REMOVED PER NURSING JUDGEMENT. PT HAD RELAXED AND COOPERATIVE MORNING. DISCHARGING TO [facility] SOON. COMMUNITY AMBASSADOR UPDATED FOR INCREASED VISUALIZATION.
--- NOTE | 2020-03-20 14:00 | NUR ---
DISCHARGE SUMMARY PATIENT DISCHARGED TO [facility]. TRANSFERRED TO WHEEL CHAIR WITH 2 PERSON ASSIST. REPORT CALLED TO NURSE WOLFE EARLIER IN SHIFT. NO FURTHER QUESTIONS AT THAT TIME. AM VITALS REVIEWED. PT TRANSPORTED SAFELY WITH [facility] STAFF.
--- NOTE | 2020-03-21 01:18 | NUR ---
LATE ENTRY PT NANCY AND BILATERAL WRIST RESTRIANTS WERE DC'D AT 0635 ON 03/15/20. CRITERIA FOR DC OF RESTRAINTS HAS BEEN MET. PT NO LONGER A DANGER TO SELF OR OTHERS AT THAT TIME. PLAN OF CARE UP TO DATE. PT WAS EDUCATED ON REASON FOR DISCONTINUING RESTRAINTS.
== END 2020-03-20 14:05 ==
LOC: ER 15:08 → MEDS 15:09
PROVIDERS: Physician Assistant; ADMIT Internal Medicine
DX: G30.9 Alzheimer's disease, unspecified (principal); F02.80 Dementia in other diseases classified elsewhere, unspecified severity, without behavioral disturbance, psychotic disturbance, mood disturbance, and anxiety; R62.7 Adult failure to thrive; I63.9 Cerebral infarction, unspecified; E78.5 Hyperlipidemia, unspecified; I10 Essential (primary) hypertension; E03.9 Hypothyroidism, unspecified; D75.1 Secondary polycythemia; G40.909 Epilepsy, unspecified, not intractable, without status epilepticus; N39.0 Urinary tract infection, site not specified; Z20.828 Contact with and (suspected) exposure to other viral communicable diseases; Z79.82 Long term (current) use of aspirin; Z79.899 Other long term (current) drug therapy; Z68.25 Body mass index [BMI] 25.0-25.9, adult
CPT/HCPCS: 36415; 70450; 80053; 81001; 85025; 87086; 93005; 93010; 96360; 96361; 99285-25; A9270-GY; J1630; J1650; J7120; U0002

== ENCOUNTER 2020-04-26 11:09 | Inpatient (IN) | payer MEDICARE, OTHER ==
[~2020-04-26] VITALS: Ht 188 cm; Wt 79.2 kg
[~2020-04-26 11:09] MED LIST changes: +ASPI325EC PO; +ATOR40TA PO; +CLOP75 PO; +DONEPEZIL HCL10 M1 PO; +Levetirace100 MG/1 M PO; +METOPROLOL TART25 MG PO; +MIRALAX17 GM PO; +OLAN5 PO; +Prinivil10 MG PO; +SYNTHROID125 MC1 PO
[2020-04-26 12:06] LABS: Albumin, Blood 2.7 g/dL (3.4-5.0); Albumin/Globulin Ratio 0.6 (0.8-1.8); Bun/Creatinine Ratio 24.7 (12.0-20.0); Calcium, Blood 8.7 mg/dL (8.5-10.1); Creatinine, Blood 1.78 mg/dL (0.60-1.20); Globulin, Blood 4.8 g/dL (2.2-4.0); Potassium, Blood 4.3 mmol/L (3.5-5.5); Total Protein, Blood 7.5 g/dL (6.4-8.2)
[2020-04-26 12:31] LABS: BASOPHILS ABSOLUTE AUTO 0.06 K/mm3 (0.00-0.23); BASOPHILS PERCENT AUTO 1 % (0-2); EOSINOPHILS ABSOLUTE AUTO 0.08 K/mm3 (0.00-0.68); EOSINOPHILS PERCENT AUTO 1 % (0-6); IMMATURE GRAN ABSOLUTE AUTO 0.05 K/mm3 (0.00-0.10); IMMATURE GRAN PERCENT AUTO 0 % (0-1); LYMPHOCYTES ABSOLUTE AUTO 1.09 K/mm3 (0.84-5.20); LYMPHOCYTES PERCENT AUTO 9 % (21-46); MONOCYTES ABSOLUTE AUTO 0.85 K/mm3 (0.16-1.47); MONOCYTES PERCENT AUTO 7 % (4-13); Mean Corpuscular HGB 32.2 pg (26.0-34.0); Mean Corpuscular HGB Conc 32.6 g/dL (31.5-36.5); Mean Corpuscular Volume 99 fL (80-100); Mean Platelet Volume 11.6 fL (9.1-12.4); NEUTROPHILS ABSOLUTE AUTO 10.43 K/mm3 (1.96-9.15); NEUTROPHILS PERCENT AUTO 83 % (41-73); Platelet Count 214 K/mm3 (150-400); RDW Coefficient Variation 13.3 % (11.7-14.2); RDW Standard Deviation 48.6 fL (35.1-46.3); Red Blood Cell Count 4.66 M/mm3 (4.30-5.90); White Blood Cell Count 12.56 K/mm3 (4.00-11.30)
[2020-04-26 12:44] LABS: International Normalized Ratio 1.08; Prothrombin Time Results 11.5 Sec (9.7-11.5)
[2020-04-26] MEDS ORDERED: ASPI81CH PO (12:44)
[2020-04-26] MEDS ORDERED: ACET500 PO (12:45)
--- NOTE | 2020-04-26 16:55 | NUR ---
PATIENT ARRIVED TO ROOM FROM [facility]. SITE TO R FEMORAL VEIN WITH SMALL AMT BLOOD TO SITE. TEGADERM CHG IN PLACE. NO S/S SWELLING NOTED. SITE TO L POPLITEAL VEIN COVERED IN GAUZE AND SECURED WITH TEGADERM, SMALL AMT BLOOD TO SITE. PATIENT SHAKES HIS HEAD "NO" WHEN I ASK IF HE'S HAVING ANY PAIN. LAYING SUPINE WITH EYES CLOSED. DOES NOT FOLLOW OTHER INSTRUCTIONS. DUSKY AND COOL EXTREMITIES. SPO2 IN 90'S ON ROOM AIR. SINUS RHYTHM ON TELE. ABD SOFT. ATTENDS ON, INCONTINENT PER REPORT, C/D/I AT THIS TIME. DRESSING NOTED TO L HEEL. L HEEL FLOATED IN FOAM. WILL CHANGE DRESSING AND TAKE PICTURES AFTER RECOVERY. PER REPORT THERE IS A WOUND TO COCCYX. WILL CHANGE DRESSING AND TAKE PICTURES AFTER RECOVER. BLE ARE DUSKY BUT PULSES ARE PALPABLE. L LEG IS SWOLLEN. BED ALARM ON. THIS RN STAYING AT BEDSIDE.
--- NOTE | 2020-04-26 17:20 | NUR ---
PATIENT LAYING IN BED WITH EYES CLOSED. DOES NOT RESPOND TO VERBAL STIMULATION BUT IS MOVING HIS L ARM UP TOWARDS HIS HEAD AND COMBING HIS HAIR. R ARM IS STIFF AGAINST HIS R SIDE, CONTRACTURED. SAYS NO WHEN I ASK IF HE'S IN PAIN, BUT DOES NOT ANSWER OTHER QUESTIONS. SITE TO R GROIN NOTED TO HAVE SMALL AMT INCREASED BLOOD. NO ACTIVE BLEEDING NOTED. R GROIN SITE WITH SMALL AMT SWELLING NOTED, HELD PRESSURE TO SITE UNTIL IT SOFTENED, PLACED 5LB WEIGHT TO SITE. SMALL AMT INCREASED DRAINAGE NOTED TO L POPLITEAL SITE. OUTLINED BOTH SITES BLOOD WITH SHARPIE. THIS RN AT BEDSIDE.
--- NOTE | 2020-04-26 17:25 | NUR ---
NO ADDITIONAL DRAINAGE TO R GROIN SITE OR L POPLITEAL SITE. NO ADDITIONAL SWELLING NOTED TO R GROIN SITE. 5LB BAG REMAINS IN PLACE TO R GROIN SITE. PLACED PATIENT'S R LEG UNDER A BLANKET TO ENCOURAGE HIM FROM BENDING AT THE KNEE. HE IS MOVING HIS ARMS AROUND MORE. THIS RN AT BEDSIDE.
--- NOTE | 2020-04-26 17:29 | NUR ---
DNR BAND PLACED TO PATIENT'S LEFT WRIST. VERIFIED WITH TOY BRADFORD RN.
--- NOTE | 2020-04-26 17:42 | NUR ---
NO ADDITIONAL DRAINAGE OR SWELLING TO R GROIN SITE. SCANT ADDITIONAL DRAINAGE TO L POPLITEAL SITE. 5LB WEIGHT REMAINS TO R GROIN. PATIENT IS MOVING HIS ARMS AROUND MORE, GROANING AT TIMES. OPENED HIS EYES AND LOOKED AT ME I WAS ADJUSTING HIS IV.
--- NOTE | 2020-04-26 17:57 | NUR ---
R GROIN SITE WITH SMALL AMT INCREASED SWELLING AND SCANT AMT INCREASED DRAINAGE. PATIENT GROANING WHEN IT IS TOUCHED. L POPLITEAL SITE WITH SCANT AMT INCREASED DRAINAGE. LUMBER MOVER ABBY CALLED DR. EDWARDS AND NOTIFIED HIM. HE STATED TO REMOVE CURRENT DRESSING AND PLACE PRESSURE DRESSING TO SITE. STATES WEIGHT WILL NOT DO MUCH FOR SITE. STATES THAT HE EXPECTS SOME LEAKING D/T ANTICOAGULATION AND THAT IT WAS A BIG VEIN. WILL PLACE DRESSING.
--- NOTE | 2020-04-26 18:05 | NUR ---
CALLED DR. EDWARDS. NOTIFIED HIM PATIENT'S R GROIN SITE HAD INCREASED SWELLING EVEN SINCE ABBY HAD CALLED HIM. HE SAID HE DID NOT NEED TO SEE THE SITE, THAT IT WAS A VEIN. STATES TO HOLD PRESSURE FOR 20 MINUTES AND THEN APPLY A PRESSURE DRESSING.
--- NOTE | 2020-04-26 18:27 | NUR ---
PRESSURE HELD FOR 20 MINUTES TO R GROIN SITE. PATIENT TOLERATED WELL. SITE IS NOW SOFT WITH A SMALL AREA OF FIRMNESS. NO INCREASED BLEEDING TO SITE. TOY BRADFORD RN APPLIED A PRESSURE DRESSING TO SITE. PATIENT NOW VERBALLY RESPONDS AT TIMES, OPENS EYES. ORAL CARE PROVIDED, PATIENT WITH DRIED BLOOD TO GUMS AND TONGUE. CALL LIGHT IN REACH. BED ALARM ON.
--- NOTE | 2020-04-26 18:32 | NUR ---
CALLED AL TO CLARIFY UA ORDER. AL STATES TO BLADDER SCAN, IF >[address] PL[address] MCCLOUD. IF <[address] MCCLOUD AND CANCEL UA.
--- NOTE | 2020-04-26 19:00 | NUR ---
DR. EDWARDS AT BEDSIDE. HE VIEWED PATIENT'S SITE. STATED THAT IT "LOOKED GOOD", MAY LEAVE OFF PRESSURE DRESSING.
[2020-04-26 19:06] LABS: Source, Urine Catheter
[2020-04-26 19:24] LABS: Appearance, Urine Hazy (Clear); Blood, Urine 5+ (Neg); Color, Urine Brown (P-Yellow); Glucose Qualitative, Urine Neg (Neg); Ketones, Urine 1+ (Neg); Leukocyte Esterase, Urine 1+ (Neg); Nitrite, Urine Pos (Neg); Protein, Urine 2+ (Neg); Specific Gravity, Urine 1.025 (1.003-1.022); Urobilinogen, Urine 2+ (Normal)
--- NOTE | 2020-04-26 19:45 | NUR ---
SHIFT SUMMARY: NEW ADMIT THIS EVENING. HE HAS BECOME MORE RESPONSIVE AND WILL SPEAK SHORT SENTENCES NOW. [facility] STATES THIS IS HIS BASELINE MENTATION AND THAT HE IS BEDBOUND AT BASELINE. HAS DENIED PAIN. ORAL CARE PROVIDED. SWELLING TO R GROIN SITE (VENOUS), PRESSURE HELD, SITE BECAME SOFT WITH LESS SWELLING. DURING BEDSIDE REPORT SITE WAS NOTED TO BE SWOLLEN AGAIN, SMALLER THAN PREVIOUSLY, REIMBURSEMENT MANAGER RN HOLDING PRESSURE AND WILL REPLACE PRESSURE DRESSING. SITE TO L CALF UNCHANGED. [facility] FAXED MEDICATION LIST OVER. REPORT GIVEN TO ONCOMING RN.
[2020-04-26 19:46] LABS: Bilirubin, Urine 2+ (Neg)
[2020-04-26 19:48] LABS: Amorphous Mod (0-Heavy); Bacteria Rare /hpf; Mucus Light (0-Heavy); Squamous Epithelial Cells Few /hpf (Few)
--- NOTE | 2020-04-26 20:15 | NUR ---
UPDATE SWELLING TO RIGHT GROIN NOTED TO BE INCREASING DURING BEDSIDE SHIFT REPORT BY DAY SHIFT RN. MANUAL PRESSURE TO SITE AT APPROX 1930 FOR APPROX 20 MINUTES. WHEN DONE SITE WAS SOFTER WITH MUCH LESS SWELLING NOTED. PRESSURE DRESSING REPLACED.
--- NOTE | 2020-04-26 21:15 | NUR ---
UPDATE SITE TO RIGHT GROIN ASSESSED. SITE REMAINED UNCHANGED WITH SMALL AMOUNT OF SWELLING NOTED AT SITE. PRESSURE DRESSING REPLACED AT THIS TIME.
--- NOTE | 2020-04-26 23:27 | NUR ---
PT REFUSING MEDICATIONS PT REFUSING ALL MEDICATIONS AT THIS TIME. PHYSICIAN NOTIFIED. NO CHANGES ARE BEING MADE AT THIS TIME. WILL INFORM DARVIN ALBRECHT.
[2020-04-27 03:56] LABS: Hematocrit 43.4 % (37.0-53.0); Hemoglobin 13.6 g/dL (13.5-17.5); Mean Corpuscular HGB 31.8 pg (26.0-34.0); Mean Corpuscular HGB Conc 31.3 g/dL (31.5-36.5); Mean Corpuscular Volume 101 fL (80-100); Mean Platelet Volume 11.7 fL (9.1-12.4); Platelet Count 174 K/mm3 (150-400); RDW Coefficient Variation 13.4 % (11.7-14.2); RDW Standard Deviation 49.5 fL (35.1-46.3); Red Blood Cell Count 4.28 M/mm3 (4.30-5.90); White Blood Cell Count 17.45 K/mm3 (4.00-11.30)
[2020-04-27 04:14] LABS: Bun/Creatinine Ratio 27.6 (12.0-20.0); Calcium, Blood 8.1 mg/dL (8.5-10.1); Creatinine, Blood 1.74 mg/dL (0.60-1.20); Potassium, Blood 3.6 mmol/L (3.5-5.5)
--- NOTE | 2020-04-27 06:16 | NUR ---
SHIFT SUMMARY PT SLEPT T/O SHIFT. PT REFUSING MEDICATIONS AT THIS TIME. PT WILL OCCASIONALLY RESPOND WITH 1-2 WORD SENTENCES. PT OPENS EYES TO NAME. PRESSURE DRESSING ASSESSED Q2. SITE WNL. DRESSING CLEAN, DRY AND INTACT. JULIO DRESSING ON L POPLITEAL SITE BECAME SATURATION. NEW JULIO DRESSING APPLIED AT 0500. DRESSING REMAINS CLEAN, DRY AND INTACT. MEPLEX ON COCCYX CHANGED, PICTURES IN CHART. DRESSING ON L HEAL CHANGED, PICTURES IN CHART. BP REMAINS STABLE, MAP ABOVE 65. HR REMAINS STABLE. MCCLOUD DRAINING TO GRAVITY. URINE WAS RED/MARITO AT BEGINNING OF SHIFT W/CLOTS. URINE IS NOW YELLOW IN COLOR WITH NO CLOTS. WILL CONTINUE TO MONITOR UNTIL REPORT GIVEN TO JAY ALBRECHT.
--- NOTE | 2020-04-27 13:45 | NUR ---
DISCUSSED POC WITH DR. GARCIA AND DR. WRIGHT. NOTIFIED HIM PATIENT STILL LETHARGIC AND HAS ONE WORD RESPONSES. UNSAFE TO TAKE ORAL MEDICATIONS AT THIS TIME. HE HAS WOUNDS TO HIS COCCYX AND L HEEL, THEY STATED TO LEAVE PACKING IN L HEEL FOR NOW. PLAN IS TO CONVERT TO ORAL ANTICOAGULANTS WHEN/IF HE IS ABLE.
--- NOTE | 2020-04-27 17:45 | NUR ---
DR. GARCIA ORDERED TO GIVE THE NORMAL SALINE 500 ML IV BOLUS, AWARE HIS LAST BP WAS 114/73.
--- NOTE | 2020-04-27 19:00 | NUR ---
CALLED DR. WRIGHT. NOTIFIED HIM TELETECH JUST REPORTED A 5 BEAT RUN OF VTACH AT 1829 AND ALSO THAT THERE WAS A 14 BEAT RUN OF VTACH AT 1725. DR. WRIGHT ORDERED STAT BMP AND NOTIFY RN FLOAT ATTENDING.
--- NOTE | 2020-04-27 19:15 | NUR ---
ASSUMED CARE OF PT, REPORT RECEIVED FROM HÉCTOR ALBRECHT. PT SITTING UP IN BED WITH EYES CLOSED, DOES NOT RESPOND TO VERBAL QUES, SMALL AMOUNT MOANING OBSERVED. NO ACUTE DISTRESS AT THIS TIME
--- NOTE | 2020-04-27 19:37 | NUR ---
TELETECH STATES THAT RUNS OF "VTACH" WERE ACTUALLY SVT. REVIEWED STRIPS WITH RUBBER ATTACHER AND CONFIRMED THAT THE 14 BEAT RUN AND 5 BEAT RUN WERE ACTUALLY SVT.
--- NOTE | 2020-04-27 19:44 | NUR ---
SHIFT SUMMARY: PATIENT MORE ALERT AT TIMES THAN OTHERS. SOMETIMES HAS ONE WORDED RESPONSES BUT MOSTLY IS NONVERBAL. NO S/S PAIN. REPOSITIONED Q2H, ORAL CARE Q4H. HEELS FLOATED. DRESSING CHANGED TO COCCYX. HEPARIN CONTINUES TO INFUSE. KEPPRA DOSE DECREASED (PHARMACIST SPOKE WITH PATIENT'S PCP AND DR. WRIGHT AND THEY DECIDED TO LOWER KEPPRA DOSE D/T PATIENT'S KIDNEY FUNCTION), BURGLAR ALARM MECHANIC AWARE TO MONITOR FOR SEIZURES. PATIENT'S CAME IN TODAY AND SAID THAT PATIENT IS NOT AT HIS BASELINE MENTALLY. REPORT GIVEN TO ONCOMING RN.
[2020-04-27 21:03] LABS: Bun/Creatinine Ratio 31.9 (12.0-20.0); Calcium, Blood 7.8 mg/dL (8.5-10.1); Creatinine, Blood 1.35 mg/dL (0.60-1.20); Potassium, Blood 3.8 mmol/L (3.5-5.5)
--- NOTE | 2020-04-28 05:37 | NUR ---
SUMMARY PT REMAINS LETHARGIC, DOESN'T FOLLOW COMMANDS. NO RESP DISTRESS OBSERVED, O2 REMAINS AT 2LPM VIA N/C. REPOSITIONED Q2HRS THROUGHOUT SHIFT. MCCLOUD CATH PATENT WITH DARK YELLOW URINE.
--- NOTE | 2020-04-28 07:51 | NUR ---
pt laying in bed with eyes closed, opens eyes to verbal, and tracks, nonverbal, unable to follow commands, lungs clear dim in bases, resp even and unlabored, no s/s of distress noted, hrr, tele in place running sr to st per monitor, see strip, no edema noted, ppp+1, cap refill <3sec, vs stable, afebrile, iv sites are clear and patent, btx4, abd flat soft nontender, voids without diff, skin has multiple wounds, to coccyx and heels, dressings in place, also has asscess site to r groin, is soft no bleeding noted, and back of left knee is a dressing c/d/I, very stiff, but can move arms some, is bedrest, and turn q 2 hrs will do oral care this am. call light in reach.
[2020-04-28 08:57] LABS: Hematocrit 31.3 % (37.0-53.0); Hemoglobin 10.3 g/dL (13.5-17.5); Mean Corpuscular HGB 34.7 pg (26.0-34.0); Mean Corpuscular HGB Conc 32.9 g/dL (31.5-36.5); Mean Corpuscular Volume 105 fL (80-100); Mean Platelet Volume 12.9 fL (9.1-12.4); NRBC ABSOLUTE 0.02 K/mm3 (0.00-0.02); NRBC Auto 0.1 /100 WBC (0.0-0.2); Platelet Count 174 K/mm3 (150-400); RDW Coefficient Variation 13.6 % (11.7-14.2); RDW Standard Deviation 51.9 fL (35.1-46.3); Red Blood Cell Count 2.97 M/mm3 (4.30-5.90); White Blood Cell Count 19.44 K/mm3 (4.00-11.30)
[2020-04-28 08:59] LABS: Bun/Creatinine Ratio 33.1 (12.0-20.0); Calcium, Blood 7.7 mg/dL (8.5-10.1); Creatinine, Blood 1.3 mg/dL (0.60-1.20); Potassium, Blood 3.7 mmol/L (3.5-5.5)
[2020-04-28 10:58] LABS: Source, Urine Clean Catch
[2020-04-28 11:07] LABS: Appearance, Urine Hazy (Clear); Blood, Urine 4+ (Neg); Color, Urine Yellow (P-Yellow); Glucose Qualitative, Urine Neg (Neg); Ketones, Urine Neg (Neg); Leukocyte Esterase, Urine 1+ (Neg); Nitrite, Urine Neg (Neg); Protein, Urine 2+ (Neg); Specific Gravity, Urine 1.015 (1.003-1.022); Urobilinogen, Urine 2+ (Normal)
--- NOTE | 2020-04-28 11:21 | NUR ---
PT HAS BEEN TRANSFERED TO MEDICAL STATUS, REPORT GIVEN TO ANA ALBRECHT, PT WILL GO VIA BED BY DEPENDENCY CASE MANAGER WITH ALL BELONGINGS.
[2020-04-28 11:33] LABS: Bilirubin, Urine 1+ (Neg)
[2020-04-28 11:35] LABS: Bacteria Rare /hpf; Squamous Epithelial Cells Few /hpf (Few)
--- NOTE | 2020-04-28 15:06 | NUR ---
upon changing the patient we were able to visualize the patient's current wound on his bottom. he has pressure ulcers on his coccyx and one unstagable presure ulcer on his left heel. patient is very stiff and fights against turns. he is a q2 turn. [facility] any [facility]. still on heparin drip.
--- NOTE | 2020-04-28 18:18 | NUR ---
shift summary patient is currently non-responsive. he has a king, [facility]. he is not waking up. he has a heparin drip. awaiting palliative care to speak with the family about current discharge plan.
--- NOTE | 2020-04-29 04:16 | NUR ---
SHIFT SUMMMARY NO ACUTE CHANGES THIS SHIFT. PT IS A&O TO SELF. BEDREST TURN Q2. MEPILEX CHANGED ON COCCYX. MEDICATED FOR PAIN X1. PT IS CURRENTLY LAYING IN BED WITH EYES CLOSED, EVEN AND UNLABORED RESPIRATIONS WITH PILLOW UNDER RIGHT HIP FOR POSITIONING. NO APPARENT NEEDS OR DISTRESS AT THIS TIME. CALL LIGHT AND PERSONAL ITEMS WITHIN REACH. WILL CONTINUE TO MONITOR UNTIL REPORT GIVEN TO DAY RN.
[2020-04-29 04:21] LABS: Hematocrit 22.6 % (37.0-53.0); Mean Corpuscular HGB 32.3 pg (26.0-34.0); Mean Corpuscular Volume 104 fL (80-100); Mean Platelet Volume 12.3 fL (9.1-12.4); NRBC ABSOLUTE 0.02 K/mm3 (0.00-0.02); NRBC Auto 0.1 /100 WBC (0.0-0.2); Platelet Count 156 K/mm3 (150-400); RDW Coefficient Variation 13.9 % (11.7-14.2); RDW Standard Deviation 51.8 fL (35.1-46.3); Red Blood Cell Count 2.17 M/mm3 (4.30-5.90); White Blood Cell Count 17.29 K/mm3 (4.00-11.30)
[2020-04-29 04:40] LABS: Anion Gap 7 mmol/L (6-16); Blood Urea Nitrogen 38 mg/dL (8-24); Bun/Creatinine Ratio 32.8 (12.0-20.0); CO2, Blood 23 mmol/L (21-32); Calcium, Blood 7.4 mg/dL (8.5-10.1); Chloride, Blood 122 mmol/L (98-108); Creatinine, Blood 1.16 mg/dL (0.60-1.20); Glomerular Filtration Rate >60 (60-); Glucose, Blood 167 mg/dL (70-99); Potassium, Blood 3.7 mmol/L (3.5-5.5); Sodium, Blood 152 mmol/L (136-145)
--- NOTE | 2020-04-29 17:40 | NUR ---
SHIFT SUMMARY PATIENT IS STILL NONRESPONSIVE TO STAFF. HE DID NOT WAKE UP FOR THE DOCTOR TODAY EITHER. HIS WAS IN TO SEE HIM. PALLIATIVE CARE HAS ALSO SEEN THE PATIENT TODAY. HIS FLUIDS WERE DISCONTINUED AND HE HAS A SECOND IV IN HIS AC HE PULLED ONE TODAY. HE IS STILL ON THE HEPARIN DRIP AT 20.3 ML/HR OR 13.5 UNITS/KG/HR. HE DOES NOT RESPOND VERBALLY. HE IS STILL VERY STIFF IN HIS MUSCLES.
--- NOTE | 2020-04-30 00:13 | NUR ---
HEPARIN GTT CONT'S AT 13 UN/KG/HR (20.3 ML/HR), PHARMACY MANAGING.
--- NOTE | 2020-04-30 00:13 | NUR ---
HEPARIN GTT CONT'S AT 13.5 UN/KG/HR (20.3 ML/HR), PHARMACY MANAGING AND NO CHANGE IN RATE AT THIS TIME.
--- NOTE | 2020-04-30 04:20 | NUR ---
CALL PLACED TO HOSPITALIST RE: VEW SCORE 4, AM VITALS AND WORSENING RESPIRATORY STATUS W/INCREASED O2 REQUIREMENT TO MAINTAIN SPO2>90%. AWAITING RETURN CALL.
--- NOTE | 2020-04-30 04:38 | NUR ---
PHARMACY AUTHORIZED DRAWING TIMED LAB (APTT) EARLY W/AM LABS NOW D/T PT'S WORSENING CONDITION AND POSSIBLE DROPPING HGB/HCT.
--- NOTE | 2020-04-30 04:40 | NUR ---
MADE AWARE OF WORSENING RESPIRATORY STATUS AND VITALS GIVEN HX OF PE AND TX FOR ACUTE LLE DVT THIS ADMISSION W/PT CURRENTLY ON A HEPARIN GTT. HE AGREED W/NEED FOR AM CBC/LABS FOR FURTHER EVALUATION AND DETERMINATION OF CARE NEEDS. WILL ALERT MD OF RESULTS.
[2020-04-30 04:51] LABS: Hematocrit 20.4 % (37.0-53.0); Hemoglobin 6.3 g/dL (13.5-17.5); Mean Corpuscular HGB 33.9 pg (26.0-34.0); Mean Corpuscular HGB Conc 30.9 g/dL (31.5-36.5); Mean Platelet Volume 12.3 fL (9.1-12.4); NRBC Auto 0.8 /100 WBC (0.0-0.2); Platelet Count 176 K/mm3 (150-400); RDW Coefficient Variation 14.7 % (11.7-14.2); Red Blood Cell Count 1.86 M/mm3 (4.30-5.90); White Blood Cell Count 25.26 K/mm3 (4.00-11.30)
[2020-04-30 04:53] LABS: Mean Corpuscular Volume 110 fL (80-100)
[2020-04-30 05:08] LABS: Bun/Creatinine Ratio 31.5 (12.0-20.0); Calcium, Blood 7.7 mg/dL (8.5-10.1); Creatinine, Blood 1.3 mg/dL (0.60-1.20); Potassium, Blood 4.3 mmol/L (3.5-5.5)
--- NOTE | 2020-04-30 05:31 | NUR ---
HEPARIN GTT BEING MANAGED BY PHARMACY. RATE DECREASED TO 13 UN/KG/HR (19.5 ML/HR) AT THIS TIME. VERFIED W/PAMELA CALHOUN (2ND RN).
--- NOTE | 2020-04-30 05:49 | NUR ---
MADE AWARE OF LATEST VITALS, AM HGB/HCT DOWN TO 6.3/20.4 AND RECENT TITRATION OF HEPARIN GTT. RN RELAYED THAT RESP STATUS IS SLIGHTLY IMPROVED NOW THAT PT IS ON 4L O2 VIA OXIMIZER W/RR DOWN T0 24 RESPS/MIN AND DECREASED WOB BUT BP IS LOWRER AGAIN DOWN TO 81/49. RX'D 1UNIT PRBC'S. WILL TRANSFUSE AND ENSURE THAT DAY RN FOLLOWS UP W/POSSIBLE NEED FOR FURTHER HGB/HCT CHECKS POST INFUSION.
--- NOTE | 2020-04-30 06:41 | NUR ---
SUMMARY: PT IS MOSTLY NONVERBAL, SELDOMLY ANSWERS YES/NO Q'S AND MAKES EYE CONTACT BUT HE'S VERY WITHDRAWN AND CONFUSED. TURN SCHEDULE MAINTAINED FOR BEDREST. HE'S STIFF/RIGID, RESISTS REPOSITIONING AND OFTEN CLENCHES FISTS AND FLEXES ARMS INWARD TOWARD CHEST. TOWEL ROLLS PLACED IN HANDS BUT HE'S UNABLE TO FOLLOW COMMANDS OR RELAX THEM WHEN PROMPTED. HEEL PROTECTORS IN PLACE AND MEPILEXES ARE INTACT TO BUTTOCKS AND BILAT HEELS. WOUNDS PRESENT TO BUTTOCKS AND HEEL. PILLOWS PLACED FOR SUPPORT AND FURTHER SBD PREVENTION. LLE DVT PRESENT AND PT REMAINS ON HEPARIN GTT. RATE DECREASED TO 13 UN/KG/HR (19.5 ML/HR) FOR TRENDING DOWNWARD HGB/HCT, 6.3/20.4. RX'D 1UNIT PRBC'S WHICH HAVEN'T ARRIVED YET FROM LAB, WILL ENSURE DAY STAFF IS AWARE. HE'D ALSO DEVELOPED INCREASED RESP DISTRESS, WOB, SOB AND TACHYPNEA THIS SHIFT. O2 WAS TITRATED TO 4L VIA OXIMIZER TO MAINTAIN SP02>90%, CLEAR LS OBSERVED AND EAR PROBE REQUIRED TO GET ACCURATE READING. BP WAS LABILE AND WAS HIGH 168/132 (WHILE EXPERIENCING RESP DISTRESS) BUT WAS 81/49 ONCE MORE SETTLED AND W/BETTER OXYGENATION. HANDS ARE EDEMATUS, PALE AND PURPLE TINGES AT PADS OF HANDS. WAS AWARE OF THIS CHANGE AND HOSPICE HAS BEEN RECOMMENDED BY MD'S/PALLIATIVE CARE. THIS TRANSITION MAY OCCUR THIS AM. WCTM AND REPORT TO DAY RN.
--- NOTE | 2020-04-30 12:56 | NUR ---
Met with Shobha at Tom's bedside this morning. Also spoke with Kirk Smith RN. Shobha states Tom is not doing well and asked if PC RN had called Sarah. Relayed my phone conversation with Sarah to Shobha. Shobha states that she is wanting to begin hospice services for Tom. She states he is tired and has "aged 20 years" recently. Explained hospice and comfort care services. She is requesting to start comfort care but to continue Tom's anti-seizure medications for comfort. Shobha requests no further blood transfusions or procedures to be done. Spoke with Dr. Tunde Jones and ARNOLD Funes. Orders for comfort care placed. [facility] will contact [facility] hospice and [facility] to arrange for Tom to go back to [facility] on hospice. Emotional support provided to Shobha.
--- NOTE | 2020-04-30 15:55 | NUR ---
Initial spiritual care note: Tom was alone in room when I visited. He was resting, eyes open, and non-responsive to voice/touch. Tom has been an active member of the [employer]. Father Ernie will therefore be following Tom through this admission. I will remain available to Shobha for cosmetic counselor/comfort.
--- NOTE | 2020-04-30 16:20 | NUR ---
WOUND CARE ON THE PATIENT'S COCCYX AND LEFT HEEL IS COMPLETE.
--- NOTE | 2020-04-30 16:45 | NUR ---
PATIENT IS NOW ON COMFORT CARE. PLANS ARE TO DISCHARGE TO [place] ON HOSPICE TOMORROW MORNING. MCCLOUD IS IN PLACE AND DRAINING DARK URINE. WOUND CARE COMPLETED ON THE PATIENT'S COCCYX AND LEFT HEEL THIS AFTERNOON. PATIENT IS REPOSITIONED Q2H. PATIENT HAS BEEN NON-VERBAL ALL DAY. THE SPENT SOME TIME AT THE BEDSIDE TODAY. 4L O2 VIA OXYMIZER. WILL CONTINUE TO MONITOR AND GIVE REPORT TO THE ONCOMING RN.
--- NOTE | 2020-05-01 06:04 | NUR ---
SUMMARY: PT REMAINS MOSTLY NONVERBAL AND NONRESPONSIVE. HE'S ON COMFORT CARE W/TURN SCHEDULE AND FREQ MOUTH CARE ATTENDED TO. MCCLOUD IS PATENT/DRAINING. IV IS SL. RESPS HAVE BEEN E/U W/O S/S RESP DISTRESS, 4L OXIMIZER IN PLACE TO MOUTH FOR COMFORT. DX'S TO BUTTOCKS AND L.HEEL WOUNDS ARE C/D/I. HEEL PROTECTORS IN PLACE AND PILLOWS PLACED FOR SUPPORT AND ADDITIONAL SBD PREVENTION. TOWEL ROLLS PROVIDED TO CONTRACTED HANDS. NO ACUTE CHANGES. PT WILL LIKELY D/C TO [facility] THIS AM. KEMI AND REPORT TO DAY RN.
[2020-05-01] MEDS ORDERED: ACET120S PR (07:43)
[2020-05-01] MEDS ORDERED: LORA1 PO (07:43)
[2020-05-01] MEDS ORDERED: TRANSDERM-SCOP1 EAC2 TD (07:44)
[2020-05-01] MEDS ORDERED: MORP20L SL (07:44)
--- NOTE | 2020-05-01 09:11 | NUR ---
WOUND ON PATIENT'S COCCYX CLEANED AND DRESSING CHANGED. WOUND ON PATIENT'S LEFT HEEL CLEANED AND DRESSING CHANGED. PATIENT REPOSITIONED.
--- NOTE | 2020-05-01 10:51 | NUR ---
PATIENT DISCHARGED AT 1035 ON 05/01/20
--- NOTE | 2020-05-01 15:10 | NUR ---
Pt. is back to [facility]
== END 2020-05-01 10:39 | DRG 271 ==
LOC: ER 11:09 → PCU 13:53 → MEDS 04-28 11:53
PROVIDERS: Emergency Medicine; Internal Medicine; Nurse Practitioner Acute Care; ADMIT Family Medicine
PROC: 06H03DZ Insertion of Intraluminal Device into Inferior Vena Cava, Percutaneous Approach (ICD-10-PCS; principal; 2020-04-29)
PROC: B5191ZZ Fluoroscopy of Inferior Vena Cava using Low Osmolar Contrast (ICD-10-PCS; 2020-04-29)
PROC: B51G1ZZ Fluoroscopy of Left Pelvic (Iliac) Veins using Low Osmolar Contrast (ICD-10-PCS; 2020-04-29)
PROC: 06CN3ZZ Extirpation of Matter from Left Femoral Vein, Percutaneous Approach (ICD-10-PCS; 2020-04-30)
PROC: 06F Lower Veins, Fragmentation (ICD-10-PCS; 2020-04-30)
PROC: 06CG3ZZ Extirpation of Matter from Left External Iliac Vein, Percutaneous Approach (ICD-10-PCS; 2020-04-30)
DX: I82.409 Acute embolism and thrombosis of unspecified deep veins of unspecified lower extremity (principal); N17.9 Acute kidney failure, unspecified; G30.9 Alzheimer's disease, unspecified; Z86.711 Personal history of pulmonary embolism; E03.9 Hypothyroidism, unspecified; I10 Essential (primary) hypertension; Z86.73 Personal history of transient ischemic attack (TIA), and cerebral infarction without residual deficits; G40.909 Epilepsy, unspecified, not intractable, without status epilepticus; Z79.82 Long term (current) use of aspirin; Z79.02 Long term (current) use of antithrombotics/antiplatelets; E86.0 Dehydration; L89.619 Pressure ulcer of right heel, unspecified stage; L89.159 Pressure ulcer of sacral region, unspecified stage
CPT/HCPCS: 36005; 36415; 37187; 37191; 51702; 75820; 75827; 76937; 80048; 80053; 81001; 82550; 83735; 84100; 85025; 85027; 85610; 85730; 86850; 86900; 86901; 86923; 87040; 87086; 92610; 93971; 96365-59; 99152; 99153; 99285-25; C1757; C1769; C1880; C1887; C1894; J0696; J1644; J1953; J2250; J2997; J3010; J7030; J7040; Q9967; U0003